=== PATIENT | female | born 2000 | race African-American/Black ===

== ENCOUNTER 2024-07-14 06:08 | Inpatient (IN) ==
[2024-07-14] MEDS ORDERED: D5 1/2 NS 1,000 ML 1,000 ML IV SCH (06:44)
[2024-07-14] MEDS: LR 1,000 ML IV 1,000 ML IV ONE ×2 (06:45→06:47)
[2024-07-14] MEDS: LR 1,000 ML IV 0 ML IV PRN (06:45)
[2024-07-14] MEDS: NOZIN NASAL SANITIZER TP ONE (06:46)
[2024-07-14] MEDS: PEPCID 20 MG VIAL IVP PRN (07:00)
[2024-07-14] MEDS: REGLAN INJ 10 MG VIAL IVP PRN (07:00)
[2024-07-14] MEDS: ZOFRAN INJ 4 MG VIAL IVP PRN (07:00)
[2024-07-14] MEDS: ZOFRAN INJ 4 MG VIAL ONE (07:02)
[2024-07-14] MEDS: PEPCID 20 MG VIAL ONE (07:02)
[2024-07-14] MEDS: REGLAN INJ 10 MG VIAL ONE (07:02)
[2024-07-14] MEDS: PRECEDEX INJ VIAL ONE (07:12)
[2024-07-14] MEDS: MARCAINE SPINAL ONE (07:12)
[2024-07-14] MEDS: ANCEF VIAL 1 GRAM IV PRN (07:15)
[2024-07-14 07:23] LABS: INR 0.96 (0.8-1.3)
[2024-07-14] MEDS: ANCEF VIAL 1 GRAM IVP ONE (07:24)
[2024-07-14] MEDS: NS 100 ML IV 100 ML ONE (07:24)
[2024-07-14] MEDS ORDERED: XYLOCAINE 2 % (PLAIN) ONE (07:24)
[2024-07-14 07:29] LABS: URIC ACID 3.7 mg/dL (2.6-6.0)
[2024-07-14] MEDS: DIPRIVAN VIAL 20 ML ONE (07:44)
[2024-07-14] MEDS: EPHEDRINE SULFATE INJ IVP PRN (07:45)
[2024-07-14] MEDS: PITOCIN ONE (08:04)
[2024-07-14] MEDS: DIPRIVAN VIAL 200 ML IVP PRN (08:15)
[2024-07-14] MEDS ORDERED: PITOCIN IVP PRN (08:31)
[2024-07-14] MEDS: VERSED ONE (08:42)
[2024-07-14] MEDS: VERSED IVP PRN (08:43)
[2024-07-14] MEDS: PRECEDEX INJ VIAL IVP PRN (09:00)
[2024-07-14] MEDS ORDERED: BENADRYL INJ 50 MG VIAL IVP PRN ×2 (09:24→09:41)
[2024-07-14] MEDS ORDERED: DILAUDID INJ IVP PRN (09:24)
[2024-07-14] MEDS ORDERED: REGLAN INJ 10 MG VIAL IVP PRN ×2 (09:24→09:41)
[2024-07-14] MEDS ORDERED: ZOFRAN INJ 4 MG VIAL IVP PRN ×2 (09:24→09:41)
[2024-07-14] MEDS ORDERED: BARHEMSYS INJ IVP PRN (09:24)
[2024-07-14] MEDS: TORADOL 30 MG VIAL IVP PRN (09:52)
[2024-07-14] MEDS: OXYTOCIN 20 UNIT/1,000 ML-NS 20 UNIT/1,000 ML PLAST..BAG IV SCH (11:07)
[2024-07-14] MEDS: TORADOL 30 MG VIAL ONE (11:35)
[2024-07-14] MEDS: ADACEL or BOOSTRIX TDaP VACCINE IM ONE (12:08)
[2024-07-14] MEDS: PERCOCET TAB 5/325 MG PO PRN (13:25)
[2024-07-15] MEDS: MYLICON TAB 80 MG CHEW PO PRN
[2024-07-15] MEDS: PERCOCET TAB 5/325 MG PO PRN (00:28)
[2024-07-15] MEDS: MOTRIN TAB 800 MG PO PRN (05:57)
[2024-07-15 08:14] LABS: HEMATOCRIT 27.9 % (36.0-47.0); HEMOGLOBIN 9.3 g/dL (12.0-16.0)
[2024-07-15] MEDS: PRENATAL PLUS PO SCH (08:42)
[2024-07-15] MEDS: COLACE CAP 100 MG PO SCH (08:42)
[2024-07-15] MEDS: BACTROBAN TOPICAL OINT TOP SCH (14:30)
[2024-07-16 00:48] VITALS: BP 149/77; PULSE 100; TEMP 97.9; O2SAT 99
[2024-07-16 06:54] VITALS: RESP 19
== END 2024-07-16 11:45 | disposition home or self-care (01) | DRG 785 ==
LOC: LD 06:08 → MED/SURG 09:26
PROVIDERS: ADMIT Specialist; ATTEND Specialist
PROC: ECTOPOP (2024-07-14 07:40)
DX: N83.292 Other ovarian cyst, left side; F12.90 Cannabis use, unspecified, uncomplicated; O13.3 Gestational [pregnancy-induced] hypertension without significant proteinuria, third trimester; Z01.818 Encounter for other preprocedural examination; Z37.0 Single live birth; O34.83 Maternal care for other abnormalities of pelvic organs, third trimester; Z3A.38 38 weeks gestation of pregnancy; R79.89 Other specified abnormal findings of blood chemistry